=== PATIENT | female | born 1940 | race Hispanic/Latino ===

== ENCOUNTER 2016-06-17 09:28 | Outpatient (CLI) | payer MEDICARE, OTHER ==
--- NOTE | 2016-06-19 10:15 | Magnetic Resonance Report ---
BILATERAL BREAST MRI WITHOUT AND WITH CONTRAST: 06/17/16 09:28:00 CLINICAL: Breast cancer survivor status post left partial mastectomy. COMPARISON:None.. TECHNIQUE: Axial 1.0-mm T1 without, axial high resolution 2.0-mm T2 and axial 1.0-mm dynamic Vibrant high-resolution postcontrast T1 fat saturation sequences on a 1.5 Marisabel magnet. The examination was performed with an 8 channel dedicated [place] breast coil. Post processing with CAD and subtraction was performed on an [employer] workstation. 20 cc of Multihance was injected without incident for the contrast portion of the exam. Consent was obtained prior to the administration of the contrast. FINDINGS: Right: Minimal background parenchymal enhancement. No mass or suspicious enhancement. No suspicious right axillary or right internal mammary lymph nodes. Left: Minimal background parenchymal enhancement. The left breast is smaller than the right with moderate skin thickening. No mass or suspicious enhancement. Benign minimally enhancing scar in the outer breast. An intramammary lymph node in the lower outer quadrant measures 1 cm maximum dimension. It has central fat and benign morphology. No suspicious left axillary or left internal mammary lymph nodes. IMPRESSION: Status post left partial mastectomy. No suspicious finding in either breast. Recommend routine mammographic screening. BI-RADS 2 -- Benign
== END 2016-06-17 09:29 | disposition home or self-care (01) ==
LOC: SPVIMAG 09:28
PROVIDERS: ATTEND Surgery
DX: Z85.3 Personal history of malignant neoplasm of breast (principal)
CPT/HCPCS: 0159T; 82962; A9577; C8908; 77059

== ENCOUNTER 2017-06-19 13:49 | Outpatient (CLI) | payer MEDICARE, OTHER ==
--- NOTE | 2017-06-23 13:39 | Magnetic Resonance Report ---
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 History of right breast ALH. COMPARISON:06/17/16 MRI and 12/05/16 bilateral mammogram.. TECHNIQUE: Axial 1.0-mm T1 without, axial high resolution 2.0-mm T2 and axial 1.0-mm dynamic Vibrant high-resolution postcontrast T1 fat saturation sequences on a 1.5 Marisabel magnet. The examination was performed with an 8 channel dedicated [place] breast coil. Post processing with CAD and subtraction was performed on an [employer] workstation. 15.0 cc of Multihance was injected without incident via a left antecubital vein 22-gauge INT for the contrast portion of the exam. Consent was obtained prior to the administration of the contrast. FINDINGS: Right: Minimal background parenchymal enhancement. No mass or suspicious enhancement. No suspicious right axillary or right internal mammary lymph nodes. Left: Minimal background parenchymal enhancement. The left breast is smaller than the right. Stable moderate skin thickening and edema of the breast. No mass or suspicious enhancement. A stable 1 cm lower outer quadrant intramammary lymph node with benign morphology. No suspicious left axillary or left internal mammary lymph nodes. IMPRESSION: Negative study with no suspicious finding. Stable post radiation skin thickening and edema of the left breast. BI-RADS 2 -- Benign
== END 2017-06-19 13:50 | disposition home or self-care (01) ==
LOC: SPVIMAG 13:49
PROVIDERS: ATTEND Surgery
DX: N60.81 Other benign mammary dysplasias of right breast (principal); R60.9 Edema, unspecified; Z85.3 Personal history of malignant neoplasm of breast; Z90.12 Acquired absence of left breast and nipple
CPT/HCPCS: A9577; C8908; 77059

== ENCOUNTER 2020-08-01 08:42 | Outpatient (CLI) | payer MEDICARE ==
--- NOTE | 2020-08-01 09:42 | Mammography Report ---
DIGITAL DIAGNOSTIC MAMMOGRAM WITH CAD CONVENTIONAL, 08/01/2020 CLINICAL INFORMATION / INDICATION: Follow-up left breast calcifications. Abnormal mammogram. TECHNIQUE: Digital left mammographic imaging was performed. Magnification views were obtained. This examination was interpreted with the benefit of Computer-aided Detection analysis. COMPARISON: 02/16/20. FINDINGS: Breast Density: There are scattered areas of fibroglandular density. Post lumpectomy/radiation changes in the left upper outer quadrant are again noted.. Grouped calcifications in the left upper outer quadrant posteriorly are again identified. The calcifi cations are faint/amorphous and tightly packed. There is an associated 6 mm nodule at that site. The calcifications are not peripheral on magnification views and do not layer on the true lateral view. IMPRESSION: Small area of grouped calcifications are associated with a nodular density and are not cl assic for fat necrosis. The findings are moderately suspicious and biopsy is recommended. Follow up recommendation: Biopsy BI-RADS Category 4: Suspicious for Malignancy. A "normal" or negative report should not discourage follow up or biopsy of a clinically significant f inding. A written summary of these findings will be mailed to the patient. The patient will be entered into a mammography reporting system which will generate a reminder letter for the patient's next appointmen t at the appropriate interval. According to the [employer], yearly mammograms are recommended starting at age 40 and continuing as long as a woman is in good health. Breast MRI is recommended for women with an jesenia roximately 20-25% or greater lifetime risk of breast cancer, including women with a strong family his tory of breast or ovarian cancer and women who have been treated for Hodgkin's disease. Signer Name: Ramon Nuñez MD Signed: 08/01/2020 9:37 AM Workstation Name: [id number]
== END 2020-08-01 08:43 | disposition home or self-care (01) ==
LOC: SPVWC 08:42
PROVIDERS: ATTEND Surgery
DX: R92.1 Mammographic calcification found on diagnostic imaging of breast (principal)